=== PATIENT | male | born 1970 | race Caucasian/White ===

== ENCOUNTER 2020-06-06 05:44 | Day surgery (SDC) | payer OTHER ==
[~2020-06-06] VITALS: Ht 182.9 cm; Wt 110.9 kg
[~2020-06-06 05:44] MED LIST: HYDROCODON-ACE1 EAC7 PO
[2020-06-06 06:41] VITALS: Ht 182.9 cm; Wt 110.9 kg
--- NOTE | 2020-06-06 10:12 | NUR ---
1004 DRESSED. AWAKE & ALERT. GIVEN DISCHARGE INFORMATION INCLUDING: SHEET LISTING NSAIDS TO AVOID, MED REC., RTC APPT., & [facility] POST ENDOSCOPY D/C INSTRUCTIONS. PT VOICED UNDERSTANDING. TOP PRIVATE CAR PER WHEELCHAIR BY STAFF. HOME WITH . Dona LAMBERT R.N.
--- NOTE | 2020-06-06 17:24 | HP ---
PATIENT: MAURO FLOREZ MEDICAL RECORD: [id number] ACCOUNT: [id number] [facility] 66 ADMISS[facility] DATE: 06/06/20 PCP: RY CARRANZA MD HISTORY AND PHYSICAL EXAMINATION CHIEF COMPLAINT: Family history of colon cancer. HISTORY OF PRESENT ILLNESS: The patient had no rectal bleeding. No abdominal pain. He desires screening colonoscopy. He does have family history of colon cancer and that his father had colon cancer, requiring a colostomy and a colon resection. MEDICATIONS: He is a pretty healthy [place] on no medicines. ALLERGIES: No known drug allergies. SOCIAL HISTORY: He is a nonsmoker. REVIEW OF SYSTEMS: Negative for coronary artery disease or hypertension. Negative for CVA or seizures. PHYSICAL EXAMINATION: GENERAL: The patient does not appear acutely ill. He does not appear chronically ill. VITAL SIGNS: Reviewed. EARS: External ears appear normal. EYES: Extraocular movements are intact. NECK: Trachea midline. CHEST: No intercostal retractions. PULMONARY: Nonlabored. No stridor. IMPRESSION: Family history of colon cancer. PLAN: Plan will be for colonoscopy. TRANSINT:[id number] Voice Confirmation ID: [id number] DOCUMENT ID: [id number] RONNY CHEUNG MD at 1724 CC: RY CARRANZA [id number] DICTATION DATE: 06/06/20 0844 DIRECTOR EMERGENCY SERVICES: 06/06/20 1231 [facility] 06/06/20 [place] [id number] [place] [id number]
--- NOTE | 2020-06-06 17:24 | OP ---
PATIENT NAME: MAURO FLOREZ MEDICAL RECORD: [id number] :66 LOCATION:D.OPS ADMISSION DATE: SURGEON: CHADD CHEUNG MD DATE OF OPERATION: 06/06/2020 PRINCIPAL DIAGNOSIS: Family history of colon cancer. POSTOPERATIVE DIAGNOSES: Family history of colon cancer with 2 sessile polyps, one in the cecum, which was a 7-mm polyp, and the other in the distal rectum, which was a 4-mm polyp. PROCEDURE: 1. Total colonoscopy to cecum. 2. Hot biopsy forceps polypectomy x2. SURGEON: Chadd Cheung MD BRUSHER AND SHEARER: None. BLOOD LOSS: Minimal. ANESTHESIA: IV sedation. COMPLICATIONS: None. The risks, possible complications, and alternatives of the procedure were explained to the patient. He elects to proceed. The discussion specifically included, but was not limited to, bleeding requiring emergency reoperation, infection, endoscopic perforation. ENDOSCOPIC COURSE: The patient was conveyed to the endoscopy suite electively on 06/06/2020. IV sedation was induced by the anesthesia staff. The patient was placed in the Hodges position. Digital rectal examination was performed. A colonoscope was inserted through the anus. It was easily advanced to the cecum. The prep was adequate. The pullback was greater than a 13-minute pullback. I irrigated and aspirated extensively. I dragged the folds. Combination of normal imaging and narrow band imaging was utilized. Two hot biopsy forceps polypectomies were performed and the polyps were removed in their entireties. A retroflexed view was obtained in the rectum. I then unretroflexed the scope and removed it under direct vision. If there was an adenomatous component to the polyps, then the patient will need to be put on surveillance colonoscopy regimen with another colonoscopy in 1 year and then every 3 years. If they are not adenomatous, the patient's next colonoscopy can take place in 10 years. TRANSINT:[id number] Voice Confirmation ID: [id number] DOCUMENT ID: [id number] OPERATIVE REPORT [id number] MAURO FLOREZ ROBERT MD at 1724 CC: [id number] DICTATION DATE: 06/06/20 0931 CONTRACT ACCOUNTANT: 06/06/20 1509 [facility] 06/06/20 [place] [address]
== END 2020-06-06 10:04 | disposition home or self-care (01) ==
LOC: D.OPS 05:44
PROVIDERS: ATTEND Surgery
DX: K63.5 Polyp of colon (principal); Z80.0 Family history of malignant neoplasm of digestive organs; Z12.11 Encounter for screening for malignant neoplasm of colon